=== PATIENT | female | born 1950 | race Caucasian/White ===

== ENCOUNTER 2018-10-03 12:01 | Emergency (ER) | payer OTHER, MEDICARE ==
[~2018-10-03] VITALS: Ht 165.1 cm; Wt 76.2 kg
[2018-10-03] MEDS ORDERED: Percocet 5-3251 EACH PO (12:44)
== END 2018-10-03 13:08 | disposition home or self-care (01) ==
LOC: ER 12:01
DX: S46.912A Strain of unspecified muscle, fascia and tendon at shoulder and upper arm level, left arm, initial encounter (principal); S29.012A Strain of muscle and tendon of back wall of thorax, initial encounter; V43.52XA Car driver injured in collision with other type car in traffic accident, initial encounter
CPT/HCPCS: 99284